=== PATIENT | female | born 1980 | race Caucasian/White ===

== ENCOUNTER 2016-09-07 09:43 | Observation (INO) | payer BC, OTHER ==
[2016-09-07] MEDS ORDERED: LABETALOL HCL 5 MG/ML VIAL IV ONE ×2 (09:50→11:22)
[2016-09-07] MEDS ORDERED: RINGER'S SOLUTION,LACTATED 1,000 ML IV PRN (09:50)
[2016-09-07 10:09] LABS: Hematocrit 42.8 % (37.0-47.0); Hemoglobin 14.2 gm/dL (12.5-16.0); Mean Cell Volume 86.8 fl (78-100); Mean Corpuscular Hemoglobin 28.8 pg (27-31); Mean Corpuscular Hgb Conc 33.2 g/dl (32-36); Mean Platelet Volume 10.3 fl (6.0-9.5); Neutrophil # 12.1 K/mm3 (1.3-6.0); Neutrophil % 74.3 % (42-75.0); Platelet Count 283 K/mm3 (150-450); Red Blood Count 4.93 M/mm3 (4.2-5.4); Red Cell Distribution Width 12.8 % (11.5-14.0); White Blood Count 16.3 K/mm3 (4.0-10.5)
[2016-09-07 10:23] LABS: Albumin * 2.9 gm/dl (3.4-5.0); Anion Gap 12.4 mmol/L (6.8-13.8); BUN/Creatinine Ratio 12.3 (9.0-21.6); Bilirubin, Total 0.4 mg/dL (0.0-1.1); Ca. Corrected For Albumin 9.4 mg/dL (8.4-10.2); Calcium * 8.8 mg/dL (7.9-10.9); Carbon Dioxide 27.4 mmol/L (24-32.6); Potassium 3.8 mmol/L (3.4-4.6); Total Protein 7.3 gm/dL (6.2-8.2)
[2016-09-07 11:10] LABS: Random Urine Total Protein 13.2 mg/dL (0-12)
[2016-09-07 11:28] VITALS: BP 146/100
== END 2016-09-07 13:49 | disposition short-term general hospital (02) ==
LOC: OBCLINIC 09:43 → OB 09:49 → INTOOBSV 09:49
PROVIDERS: ADMIT Obstetrics & Gynecology Gynecologic Oncology; ATTEND Obstetrics & Gynecology Gynecologic Oncology
DX: O13.3 Gestational [pregnancy-induced] hypertension without significant proteinuria, third trimester (principal); Z3A.35 35 weeks gestation of pregnancy
CPT/HCPCS: 36415; 59025; 80053; 82570; 84156; 85025; 87081; 96374; 96376; G0378

== ENCOUNTER 2016-10-07 08:49 | Inpatient (IN) | payer BC, OTHER ==
[2016-10-07] MEDS ORDERED: BUTORPHANOL TARTRATE 2 MG/ML VIAL IV PRN (09:03)
[2016-10-07] MEDS ORDERED: RINGER'S SOLUTION,LACTATED 1,000 ML IV ONE (09:03)
[2016-10-07] MEDS ORDERED: OXYTOCIN/DEXTROSE 5%-WATER 30 UNITS/500 ML BAG IV ONE ×2 (09:03)
[2016-10-07] MEDS ORDERED: ONDANSETRON HCL/PF 2 MG/ML VIAL IV PRN ×2 (09:03→18:18)
[2016-10-07] MEDS ORDERED: MISOPROSTOL 100 MCG TABLET VG PRN (09:03)
[2016-10-07] MEDS ORDERED: DEXTROSE 5%-LACTATED RINGERS 1,000 ML IV PRN (09:03)
[2016-10-07] MEDS ORDERED: LIDOCAINE HCL 50 ML VIAL PERI PRN (09:03)
[2016-10-07] MEDS: RINGER'S SOLUTION,LACTATED 1,000 ML IV PRN ×2 (09:38→19:15)
--- NOTE | 2016-10-07 11:13 | PN ---
Progess Note - Interim Narrative: 10/07/16 11:02 Subjective-patient is feeling contractions Objective- SVE- 05/13/-4, cephalic FHTs-135, moderate variability, no decelerations, positive accelerations [place]- 2-5 minutes status post Cytotec 1 Assessment and plan- Labor-induction with Cytotec GBS status-negative Gestational hypertension-BP's controlled with labetolol, cont. to monitor for severe pressures or s/sx of severe disease Continue current plan of care.
--- NOTE | 2016-10-07 16:25 | PN ---
Progess Note - Interim Narrative: 10/07/16 16:24 More uncomfortable otherwise asymptomatic FHTs: 135's, mod kellie, no decles, +accels TOCO: q2 min SVE: 5/50/-4, arom-clear fluid Cont. current plan
[2016-10-07] MEDS: LABETALOL HCL 100 MG TABLET PO SCH (16:39)
[2016-10-07] MEDS ORDERED: NALOXONE HCL 1 MG/1 ML SYRG IV PRN (18:18)
[2016-10-07] MEDS ORDERED: BUPIVACAINE HCL/0.9 % NACL/PF 250 ML EP PRN (18:18)
--- NOTE | 2016-10-07 18:22 | OR ---
Anesthesia Pre Procedure Eval Date of Service: 10/07/16 Pre Procedure Evaluation: Last Vital Signs Temp 36.7 C 06/08/14 09:29 Pulse 75 10/07/16 16:39 Resp BP 134/95 10/07/16 16:39 Pulse Ox Anesthesia Pre Procedure Evaluation Heart Rate: 76 Blood Pressure: 134/93 Temperature: 36.9 Respiratory Rate: 20 SaO2: 99 DATE: 10/07/2016 TIME: 0 INDICATIONS: Active labor, labor pain PAST MEDICAL HISTORY: UPPER and active labor at 5 cm dilatation requesting labor analgesia History of GERD: No History of smoking: No History of sleep apnea: No EXAM: Heart regular; lungs clear ASSESSMENT OF MEDICAL STATUS: Appropriate candidate for labor analgesia PLANNED PROCEDURE: Combination spinal epidural for labor analgesia Home Medications: HOME MEDICATIONS Vits96/Iron Fum/Folic [ S] 1 tab PO DAILY 02/05/13 [Last Taken 09/04/16 21:00] Labetalol HCl [Trandate] 300 mg PO TID 10/07/16 [Last Taken 10/07/16 07:00]
[2016-10-07] MEDS ORDERED: fentaNYL CITRATE/PF 50 MCG/ML AMPUL IT SCH (18:30)
--- NOTE | 2016-10-07 19:04 | OR ---
Anesthesia Procedure Note - Anesthesia Procedure Note Date of Service: 10/07/16 Narrative: Vital Signs - Last Taken Temp 36.7 C 06/08/14 09:29 Pulse 75 10/07/16 16:39 Resp BP 134/95 10/07/16 16:39 Pulse Ox ANESTHESIA PROCEDURE NOTE Date of Procedure: 10/07/2016 Time of procedure: 1820. Performed by: KAMRAN Sherman CRNA, MSN [place] Machine Operator: Onesimo Kauffman RN. Preprocedure diagnosis: Active labor, labor pain. Post procedure diagnosis: Same. Procedure:Epidural for labor analgesia L3 4. Indications: Labor pain. Findings: See below. Details of the procedure: The patient was placed on the side of the bed in sitting positionand prepped with DuraPrep then draped in a sterile fashion. Lidocaine 1% was infiltrated to the skin and subcutaneous tissues at the level of the L3 4 interspace. An 18-gauge Touhy needle was used to approach the epidural space with loss of resistance technique. Once loss of resistance was achieved a 24-gauge Pencan needle was passed through the epidural needle and CSF was contacted. After CSF returned fentanyl 20 mcg of fentanyl was injected in the spinal needle was removed the epidural catheter was then threaded approximately 4 cm in the epidural needle was removed. The catheter was taped in place and after careful aspiration 3 mL of 1.5% lidocaine with 1-200,000 epinephrine was injected without change in maternal heart rate or sensorium. . EBL: Minimal. Fluids: N/A. Specimen: N/A. Post procedure condition: The patient tolerated the procedure well with. Good Relief. No complications were noted. Thank you for this consultation. Dino Dickerson CRNA, ARNP, MSN 10/07/16 18:47
--- NOTE | 2016-10-07 22:33 | OR ---
Operative Report - Dictated Report Narrative: Spontaneous Vaginal Delivery Viable female with APGARS of 8 at 1 minute and 9 at 5 minutes. Baby delivered at 2202. Presentation was SAMUEL. A loose nuchal cord was noted and reduced over the baby' s head. The anterior and posterior shoulder delivered without difficulty. The baby was placed on the maternal abdomen and was dried and stimulated and spontaneous cry was noted. The cord was clamped and cut after approximately 60 seconds. Weight: 2800g Placenta was delivered spontaneously and intact. A true knot was noted in the cord and the cord appeared to be especially long. No lacerations were noted. Estimated blood loss: 100 ml Mother and baby tolerated delivery well. History for Definition: * The number of deliveries resulting in a live the patient experienced prior to current hospitalization * The previous delivery of live twins or any live multiple gestation is considered one live event. *If primagravida or nulliparous is documented select zero for the number of previous live births. Live Events: 2
[2016-10-08] MEDS: LABETALOL HCL 100 MG TABLET PO SCH ×2 (00:29→09:23)
[2016-10-08] MEDS ORDERED: oxyCODONE HCL/ACETAMINOPHEN 1 TAB TABLET PO PRN ×6 (04:14→08:06)
[2016-10-08] MEDS ORDERED: SENNOSIDES 8.6 MG TABLET PO PRN ×3 (04:14→08:06)
[2016-10-08] MEDS ORDERED: IBUPROFEN 800 MG TABLET PO PRN ×3 (04:14→08:06)
[2016-10-08] MEDS ORDERED: BISACODYL 10 MG SUPP.RECT RC PRN ×3 (04:14→08:06)
[2016-10-08] MEDS ORDERED: BENZOCAINE/MENTHOL 81 SPRAY CAN TP PRN (08:06)
[2016-10-08] MEDS ORDERED: OXYTOCIN/DEXTROSE 5%-WATER 500 ML IV ONE (08:06)
[2016-10-08] MEDS ORDERED: HYDROCORTISONE 30 APPL TUBE TP PRN (08:06)
[2016-10-08] MEDS ORDERED: GLYCERIN/WITCH HAZEL LEAF 40 APPL BOX TP PRN (08:06)
[2016-10-08] MEDS ORDERED: DOCUSATE SODIUM 100 MG CAPSULE PO SCH ×2 (09:00)
[2016-10-08] MEDS: DOCUSATE SODIUM 100 MG CAPSULE PO SCH ×2 (09:17→21:14)
--- NOTE | 2016-10-08 10:23 | PN ---
Progess Note - Interim Narrative: 10/08/16 10:22 progress note Subjective: The patient is doing well. She is ambulating, voiding, tolerating by mouth. She has minimal pain and moderate lochia. Asymptomatic. Objective: General: No acute distress Abdomen: Soft, nontender, fundus is firm just below the umbilicus Extremities: minimal edema, nontender to palpation Assessment and plan: day 1 Feeding: Bottle Pain: Controlled with by mouth medication GHTN: trial off BP medstoday, resume if bps high Routine care.
[2016-10-09] MEDS: LABETALOL HCL 100 MG TABLET PO SCH ×2 (01:11→11:35)
--- NOTE | 2016-10-09 10:25 | PN ---
Progess Note - Interim Narrative: 10/09/16 10:24 progress note Subjective: The patient is doing well. She is ambulating, voiding, tolerating by mouth. She has minimal pain and moderate lochia. Asymptomatic. Objective: General: No acute distress Abdomen: Soft, nontender, fundus is firm just below the umbilicus Extremities: minimal edema, nontender to palpation Assessment and plan: day 2 Feeding: Bottle Pain: Controlled with by mouth medication GHTN: doing well off labetolol Routine care.
[2016-10-09 10:37] VITALS: BP 141/95
[2016-10-09] MEDS: DOCUSATE SODIUM 100 MG CAPSULE PO SCH (11:36)
== END 2016-10-09 11:55 | disposition home or self-care (01) | DRG 775 ==
LOC: OB 08:49 → MS 10-08 19:54
PROVIDERS: ADMIT Obstetrics & Gynecology Gynecologic Oncology; ATTEND Obstetrics & Gynecology Gynecologic Oncology
PROC: 10E0XZZ Delivery of Products of Conception, External Approach (ICD-10-PCS; principal; 2016-10-07)
PROC: 4A1HXCZ Monitoring of Products of Conception, Cardiac Rate, External Approach (ICD-10-PCS; 2016-10-07)
PROC: 00HU33Z Insertion of Infusion Device into Spinal Canal, Percutaneous Approach (ICD-10-PCS; 2016-10-07)
DX: O13.4 Gestational [pregnancy-induced] hypertension without significant proteinuria, complicating childbirth (principal); O69.81X0 Labor and delivery complicated by cord around neck, without compression, not applicable or unspecified; Z3A.37 37 weeks gestation of pregnancy; Z37.0 Single live birth